=== PATIENT | male | born 1960 | race Caucasian/White ===

== ENCOUNTER 2021-03-11 05:51 | Day surgery (SDC) | payer OTHER, SELFPAY ==
--- NOTE | 2021-02-24 14:49 | HP.PCM_ITS ---
History and Physical History and Physical [facility] Patient Name: Dallas Fine : 1960 From: JOSE BROWN PA-C DATE OF SURGERY: 03/11/2021 SCHEDULED PROCEDURE: left knee arthroscopy with medial and lateral meniscectomy and chondroplasty HISTORY OF PRESENT ILLNESS: Preoperative history and physical exam was performed on February 23, 2021. This is a 60-year-old male who had an injury to the left knee on October 11, 2020. At that time he was going down steps when he hit his head landed on his left lower extremity twisting his knee. Since then he has had instability with the left knee. He had no prior pain or complications with the left knee before October 2020. Pain is located over the medial lateral aspect of the knee. He has increased pain going up and down stairs, walking, and sitting. He has tried nonsteroidal anti-inflammatory ibuprofen and Aleve with no relief in symptoms. Patient states he never had any symptoms from hitting his head after the injury. Patient continues throughout the day to get occasional catching sensation in the knee. His pain can reach as high as a 6/10. He does get pain in the anterior aspect of the knee. After failing conservative measures and discussing treatment options, patient does wish to proceed with a left knee arthroscopy with medial and lateral meniscectomy and chondroplasty. We are undergoing preoperative lab work and EKG. Patient denies any chest pain, shortness of breath, fevers chills, recent infections. He has medical history pertinent for type 2 diabetes mellitus, gout, and sleep apnea. REVIEW OF SYSTEMS: ROS: Const: Reports weight change, but denies change in appetite and fever. CV: Denies chest pain, heart murmur and irregular heartbeat. Resp: Denies cough, pneumonia, shortness of breath, tuberculosis and wheezing. GI: Denies constipation, diarrhea, heartburn, nausea, rectal itching, bloody stools and vomiting. : Denies incontinence. Musculo: Denies leg swelling, pain, trouble walking and weakness. Skin: Denies Raynaud's, history of shingles and tattoo. Neuro: Denies ambulatory dysfunction, dizziness, numbness/tingling and tremor. Psych: Denies anxiety, insomnia and stress. Scotty/Lymph: Denies anemia, bleeding/bruising tendency and past transfusion. Reviewed, no changes. PAST MEDICAL HISTORY: Advance Care Plan: No Advance Directives Effective Date: 12/24/2020 PMH: Medical Problems: Diabetes, Gout, Hypercholesterolemia, Sleep Apnea Covid- 19 - VACCINATED BOOSTER Accidents: None Surgical Hx: Tonsillectomy - (1970) Anesthesia Complications: None Assistive Devices: Cpap, Brace, Glasses Reviewed and updated. 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.Work Status: Currently Working.Hand Dominance: Right-handed. Personal Habits: Cigarette Use: Never Smoked Cigarettes.Smokeless Tobacco: Never Used Smokeless Tobacco.E-Cigarette Use: Never used.Alcohol: Occasionally.Drug Use: Denies Use.Enjoy Exercising: Never Exercises. Reviewed and updated. VITALS: Ht: 70.8 Wt: 296lb 6oz Wt k.436 BMI: 41.6 BP: 134/72 Pulse: 76 Resp: 16 T: 97.2 T: 36.2C Pain Level: 1 ALLERGIES: CT Contrast - Heart Issues Cholesterol Meds - Sore Legs MEDICATIONS: Energy 5-325 mg 1-2 by mouth every 6 hour as needed pain, Atorvastatin Calcium 40 mg 1 by mouth every day, Metformin HCL 1000 mg 1po bid, Glipizide 10 mg 1 by mouth twice a day, Allopurinol 300 mg 1po qday PRE-OP EXAM: General appearance:NORMAL Other: Eyes: Conjunctivae and lids: NORMAL Pupils: ERR Ears, Nose, Mouth, and Throat: NORMAL Other: Inspection of lips, teeth and gums: NORMAL Other: Neck: Examination of neck: no masses noted. Respiratory: Assessment of respiratory effort: NORMAL Other: Auscultation of lungs: clear to auscultation no wheezes, rhonchi or rales. Cardiovascular: Auscultation of heart: regular rate and rhythm, no murmurs, gallops or rubs. PHYSICAL EXAMINATION: Left knee is cool to touch without erythema or signs of infection. He does have effusion to the left knee. He has tenderness to palpation along the medial lateral joint line. He gets some crepitus with range of motion. Range of motion left knee: 0 extension to 115 flexion with pain. He has positive Jeffrey's examination, negative anterior/posterior drawer, negative varus/valgus stress test. He does walk with a slight limping gait. Sensation intact to light touch. IMAGING STUDIES: Previous x-rays of the left knee reveal varus alignment with medial joint space narrowing, subchondral sclerosis, osteophyte formation consistent with moderate stage III osteoarthritis. [place] view shows lateral joint space narrowing with osteophyte formation. MRI from [facility] [place] on December 31, 2020 revealed medial and lateral meniscus tear. There is also a high-grade cartilage loss in the medial compartment as well as full-thickness chondral malacia in the lateral compartment. There appears to be loose body in the posterior aspect of the PCL. MRI report states grade 3 chondromalacia medially, grade 2-3 chondral malacia in the patellofemoral compartment and grade 2 chondromalacia of the lateral compartment. IMPRESSION: 1. Left knee medial lateral meniscus tear 2. Left knee osteoarthritis 3. Type 2 diabetes mellitus 3. History of gout 4. Hypercholesterolemia 5. Sleep apnea PLAN: I did discuss and review with the patient all treatment options including surgical versus nonsurgical options. Patient does wish to proceed with the above-stated procedure. Potential risks, benefits, and complications of the procedure were discussed in detail including but not limited to , infection, nerve and blood vessel damage, persistent pain, numbness, tingling, paresthesias, blood clot, pulmonary embolism, and requirement for possible further surgery. The patient expressed full understanding and has no further questions for the doctor. Patient does agree to proceed with the above-stated procedure and has signed the surgery consent form. Patient is in agreement with treatment plan is aware that his underlying osteoarthritis with the knee can still be a source of pain postoperatively which may lead to future surgical intervention. Patient prior to this injury had no problems with his knee and we did discuss pain coming from the meniscus versus arthritis. We discussed the current risks associated with COVID 19. This does include the risk of exposure while in the hospital. Patient was reassured local hospitals have low infection rates and are taking all necessary precautions to avoid exposure to patients. In addition, we discussed strategies that can be used to help limit exposure including those that limit the patient's time in the hospital. Also using strategies to limit the patient's need for continued inpatient services after being discharged from the hospital. Patient was notified that we will need to comply with any screening or testing the hospital wishes to perform or that surgery may be delayed for any positive results. This dictation was created using voice recognition software. Phonetic and/or grammatical errors may exist. ___ I have re-examined the patient. There are no clinical changes since date of exam. ___ See progress notes for changes. ___ Dictated on admission Date: Time: Signature:
--- NOTE | 2021-03-09 09:26 | EKG12_ITS ---
Test Reason : PREOP Blood Pressure : / mmHG Vent. Rate : 075 BPM Atrial Rate : 075 BPM P-R Int : 150 ms QRS Dur : 086 ms QT Int : 388 ms P-R-T Axes : 030 -04 003 degrees QTc Int : 433 ms Normal sinus rhythm Normal ECG Confirmed by FATOU DUNCAN, MOISES ([id number]), legal editor SHANTE ARAMBULA ([id number]) on 03/09/2021 2:06:59 PM Referred By: Warner Cohen Confirmed By:MOISES LAINEZ MD
[2021-03-09 10:49] LABS: Hematocrit 43.5 % (40-54); Hemoglobin 14.2 g/dL (13.0-16.5); Mean Corp Hgb Conc 32.6 g/dL (32-36); Mean Corpuscular Hgb 28.7 pg (27.0-32.0); Mean Corpuscular Volume 87.9 fL (80-94); Mean Platelet Vol. 10.5 fl (6.2-12.0); Platelet Count 281 K/mm3 (150-450); RBC Distribution Width CV 14.4 % (11.6-14.6); RBC Distribution Width SD 46.2 fl (35.1-43.9); Red Blood Count 4.95 M/mm3 (4.6-6.2); White Blood Count 9.3 K/mm3 (4.4-11.0)
[2021-03-09 11:14] LABS: Hemoglobin A1c 7.3 % (3.8-5.6)
[2021-03-09 11:23] LABS: Anion Gap 7 (5-15); BUN 18 mg/dL (7-18); BUN/Creat Ratio 18.6 RATIO (10-20); Calcium,Total 9.3 mg/dL (8.5-10.1); Chloride 107 mmol/L (98-107); Creatinine, Serum 0.97 mg/dL (0.70-1.30); EST Glomerular Filtration Rate 85 mL/min (>60); Est Glom Filt Rate - Afr Amer 102 mL/min (>60); Glucose 201 mg/dL (74-106); Potassium 4.2 mmol/L (3.5-5.1); Sodium Level 140 mmol/L (136-145)
[2021-03-11] VITALS (7 sets, daily range): BP systolic 140–157; BP diastolic 80–100; PULSE 84–94; RESP 18; TEMP 36.4–36.6; O2SAT 94–100; BMI 41.5
[2021-03-11] MEDS: Lactated Ringers 1,000 ML 15 ML IV (06:15)
[2021-03-11 06:56] LABS: Bedside Glucose 150 mg/dL (70-110)
[2021-03-11] MEDS: Ketorolac 30 MG/ML Syringe IV (07:15)
[2021-03-11] MEDS: Epinephrine (1 mg/ml) 1 MG/ML VIAL (07:48)
--- NOTE | 2021-03-11 08:12 | PCM.OPRPT ---
Report of Operation Date of Procedure: 03/11/21 Pre-Operative Diagnosis: Left knee tricompartmental chondromalacia, medial meniscus tear, lateral meniscus tear Post-Operative Diagnosis: Left knee tricompartmental chondromalacia, medial meniscus tear, lateral meniscus tear Surgery/Procedure Performed:: Left knee arthroscopic 1. Tricompartmental chondroplasty 2. Partial medial and lateral meniscectomy Description of Surgical Findings:: Grade IV chondromalacia tricompartmental medial and lateral meniscus tears Surgeon: Warner Cohen radiologist: None Type of Anesthesia: General Anesthesiologist: Obdulio Muñoz Special Medications: 3 g Ancef Estimated Blood Loss (mL): 10 Fluids Replaced: 700 mL crystalloid Description of Procedure: On the date of the procedure, the patient's L lower extremity was marked in the preoperative area. Patient was brought back to the operating room where they were transferred to the bed. Anesthesia assumed control of the C-spine airway and administered anesthetic. All bony prominences were identified and well-padded and the L leg was placed in the arthroscopic leg grant. The contralateral leg was then draped over the bed and well-padded. There was padding underneath both sciatic nerves. The foot of the bed was then dropped and the L leg was prepped in a sterile fashion. The surgeon then scrubbed. Upon reentering the room, the operative leg was draped in a standard orthopedic fashion. A timeout was called, everyone agreed upon the side, the site, the procedure to be performed, patient's identity and antibiotics given. Incisions were marked out for the medial and lateral infrapatellar portals. Esmarch bandage was then used to exsanguinate the leg and tourniquet was placed at 250 mmHg. At this time, the lateral portal incision was made in a vertical fashion. The trocar was placed into the joint. The camera was then placed and the patellofemoral joint was visualized. The patella did appear to have grade 4 chondral changes. The trochlea appeared to have grade 4 chondral changes. We then directed our attention to the medial gutter where there was no foreign body. Then directed our attention to the medial joint compartment. There were grade 4 chondral changes on the medial distal femur, grade 3 chondral changes on the medial tibial plateau. The medial meniscus had large posterior horn complex tear. The medial portal was then placed under direct visualization using a spinal needle an 11 blade scalpel. Once this was done a probe was placed in the joint and the meniscus was probed finding large posterior horn complex tear as well as a central crevice with cartilage flaps on the distal femoral condyle. The biters and lisseth were then used sequentially to debriding get rid of any free edges that could be a source of pain and catching in the meniscus tear. Once we felt medial meniscus tear was adequately debrided, we again visualized the joint and noted the meniscus tear was adequately debrided. We also used a shaver to debride the chondral flaps exposing a much larger central defect with grade IV chondromalacia in this area. Attention was then turned towards the notch where the anterior cruciate ligament was intact. PCL was visualized and appeared intact. Attention was then directed towards the lateral compartment where the lateral distal femur had a central grade 4 lesion chondral changes, the lateral proximal tibia had grade 3 chondral changes. The lateral meniscus had large posterior horn and anterior horn tears. Biters and lisseth were used to sequentially breed the meniscus tear. Shaver was used to debride the chondral flaps around the central crevice exposing a much larger area of grade IV chondromalacia on the distal femoral condyle laterally. We then directed our attention to the lateral gutter, which was visualized and no free bodies were noted. At this point we directed our attention back to the patellofemoral compartment where the shaver was used to debride the chondral flaps associated with a grade IV chondromalacia on the patella as well as the trochlea. Once this was done the wound was copiously irrigated out with normal saline with epinephrine. The wound was closed with 4-0 nylon and 0.5% Marcaine and epinephrine were injected for local anesthetic. Xeroform was placed over the incision. Sterile dressing was placed. Compressive dressing was placed. Tourniquet was let down. For that there was then placed up. Patient was awakened by anesthesia patient was transferred to the PACU for recovery in stable condition. Postoperative plan: Patient will be made weight-bear as tolerated. Return to activities as tolerated. He will come to the office in 2 weeks for postoperative wound check and suture removal. If he is doing well that time he can follow-up as needed.
== END 2021-03-11 23:59 | disposition home or self-care (01) ==
LOC: SDC 05:52 → AC 05:52
PROVIDERS: Referring Provider Specialist; Visit Provider Specialist
PROC: (CPT 29870; principal; 2021-03-11 07:10)
DX: S83.282A Other tear of lateral meniscus, current injury, left knee, initial encounter (principal); E11.9 Type 2 diabetes mellitus without complications; M17.12 Unilateral primary osteoarthritis, left knee; Z79.84 Long term (current) use of oral hypoglycemic drugs; E78.00 Pure hypercholesterolemia, unspecified; M10.9 Gout, unspecified; M22.42 Chondromalacia patellae, left knee; G47.30 Sleep apnea, unspecified; Z79.899 Other long term (current) drug therapy; X50.1XXA Overexertion from prolonged static or awkward postures, initial encounter; Y93.9 Activity, unspecified; Y92.9 Unspecified place or not applicable; I10 Essential (primary) hypertension; S83.242A Other tear of medial meniscus, current injury, left knee, initial encounter
CPT/HCPCS: 29880; 01400; 36415; 80048; 82962; 83036; 85027; 93005; J7120; J2405

== ENCOUNTER → 2022-03-25 | Outpatient (CLI) | payer OTHER, SELFPAY ==
--- NOTE | 2022-03-25 15:36 | MRI_ITS ---
STUDY: MRI LUMBAR SPINE WITHOUT CONTRAST REASON FOR EXAM: Male, 61 years old. SPINAL STENOSIS TECHNIQUE: Standardized fat and water weighted pulse sequences were obtained in the sagittal and axial planes. COMPARISON: None FINDINGS: T12-L1: Normal endplates. Normal disc height, desiccation and normal morphology Normal bilateral facet joints. Normal central canal and bilateral lateral recesses. Normal bilateral intervertebral neural foramina. Normal lumbar lordosis. There is no substantial scoliosis. Normal conus medullaris that terminates at T12-L1 L1-2: Normal endplates. Normal disc height, desiccation and minimal annular bulge.. Normal bilateral facet joints. Normal central canal and bilateral lateral recesses. Normal bilateral intervertebral neural foramina. L2-3: Normal endplates. Normal disc height, desiccation and normal morphology.. Minor facet arthropathy and thickening of ligamenta flava. Normal central canal and bilateral lateral recesses. Mild bilateral neural foraminal encroachment. L3-4: Normal endplates. Normal disc height, desiccation and minimal bulging disc osteophyte complex.. Facet arthropathy and thickening of ligamenta flava. Normal central canal. Moderate bilateral recess and neural foraminal stenosis exaggerated by shortened pedicles L4-5: Normal endplates. Normal disc height, desiccation and normal morphology. Facet arthropathy and thickening of ligamenta flava.. Normal central canal. Mild to moderate bilateral lateral recess and neural foraminal stenosis exaggerated by shortened pedicles L5-S1: Normal endplates. Normal disc height, desiccation and minor bulging disc osteophyte complex with tiny central annular tear and disc protrusion.. Facet arthropathy and thickening of ligamenta flava.. Minor narrowing of the central canal. Moderate bilateral lateral recess stenosis and severe neural foraminal stenosis exaggerated by shortened pedicles Normal visualized sacral ala. Normal visualized paraspinous soft tissue structures. MRI/Spine Lumbar (Routine) IMPRESSION: No evidence for acute fracture or other significant bony pathology.. Multilevel spinal stenosis secondary to disc disease and facet arthropathy exaggerated by shortened pedicles most severe at L5-S1. Findings as above Electronically Signed: Rian Toribio MD at 16:56 EST ,
== END | disposition home or self-care (01) ==
LOC: MRI 15:28
PROVIDERS: PCP Nurse Practitioner Primary Care; Visit Provider Orthopaedic Surgery
DX: M48.061 Spinal stenosis, lumbar region without neurogenic claudication (principal); M46.96 Unspecified inflammatory spondylopathy, lumbar region; M47.26 Other spondylosis with radiculopathy, lumbar region
CPT/HCPCS: 72148

== ENCOUNTER → 2023-07-18 | Outpatient (CLI) | payer BC, SELFPAY ==
--- NOTE | 2023-07-18 16:09 | RAD_ITS ---
INDICATION: PAIN EXAMINATION/TECHNIQUE: X-RAY - XR Hip Unilateral with Pelvis when performed; 2-3 Views: AP pelvis with AP and frog-leg right hip COMPARISON: None FINDINGS: PELVIC BONES: No displaced fracture, destructive or sclerotic lesions. Note that overlapping bowel shadows may however obscure fine detail. Sacroiliac joints are unremarkable. No widening of the pubic symphysis. HIPS: Normal bilateral hip alignment with moderate joint space narrowing and mild osteophyte formation. No avascular necrosis. No visible femoral fracture. SOFT TISSUES: No soft tissue swelling or gas. RAD/HIP, UNI W/ Pelvis 2-3 Views IMPRESSION: No evidence of displaced pelvic or hip fracture. Moderate bilateral hip osteoarthritis. Electronically Signed: Kiko Contreras MD at 3:24 EDT ,
== END | disposition home or self-care (01) ==
LOC: MTRAD 16:07
PROVIDERS: PCP Nurse Practitioner Primary Care; Referring Provider Clinical Nurse Specialist Adult Health; Visit Provider Clinical Nurse Specialist Adult Health
DX: M16.0 Bilateral primary osteoarthritis of hip (principal)
CPT/HCPCS: 73502

== ENCOUNTER 2023-08-18 10:51 | Emergency (ER) | payer BC, SELFPAY ==
[2023-08-18 10:52] VITALS: BP 153/80; PULSE 75; RESP 14; TEMP 36.1; O2SAT 96
--- NOTE | 2023-08-18 11:20 | EX.ED.DYSGE1 ---
HPI History of Present Illness Chief Complaint: Flank Pain Informant: patient Onset/Context/Timing Onset: Today Narrative Narrative: Patient present secondary to right flank pain. He has a history of back problems and has had prior injections. The past couple days he noted some increased pain in his back but thought was musculoskeletal. Today pain was more severe and is now wrapping around into the groin line. He denies urinary symptoms. Pain does not radiate down his leg. No history of kidney stones. [facility] Medical History Wears glasses Diabetes Arthritis Gout High cholesterol Migraine headache Loss of consciousness Dietary restriction CPAP (continuous positive airway pressure) dependence Sleep apnea History of pain when walking History of stress test Hypertension Home Medications ?Medication ?Instructions ?Recorded ?Last Taken ?Type allopurinol 300 mg tablet 300 mg PO DAILY 03/04/21 Unknown History frughal-cmhrhzpmclmib-lhgrysba 250 2 tab PO Q6H PRN MIGRAINES 03/04/21 Unknown History mg-250 mg-65 mg tablet (Excedrin Migraine) atorvastatin 40 mg tablet 40 mg PO QHS 03/04/21 Unknown History glipizide 10 mg tablet, extended 20 mg PO DAILY 03/04/21 Unknown History release 24 hr metformin 500 mg tablet,extended 1,000 mg PO BID 03/04/21 Unknown History release 24 hr hydrocodone-acetaminophen 5-325mg 1 tab PO Q6H PRN PRN Pain 3 days 08/18/23 Unknown Rx 5mg-325mg #10 TABLETS ibuprofen 600 mg tablet 600 mg PO Q8H PRN PRN pain #10 08/18/23 Unknown Rx TABLETS ondansetron 4 mg disintegrating 4 mg PO Q8H PRN PRN Nausea #10 tabs 08/18/23 Unknown Rx tablet tamsulosin 0.4 mg capsule (Flomax) 0.4 mg PO DAILY #14 caps 08/18/23 Unknown Rx Allergy/AdvReac Type Severity Reaction Status Date / Time Iodinated Contrast Media (CT) Allergy Other Verified 08/18/23 11:36 Aszghhj-ZJB-UuH Reductase Allergy NEEDS Verified 08/18/23 11:36 Inhibitor FOLLOW-UP Surgical History Hx of tonsillectomy Social History Smoking Status: Never smoker ROS ROS ED Constitutional Constitutional ED: Denies chills or fever(s) ENT ENT ED: Denies rhinorrhea or sore throat Cardiovascular Cardiovascular: Denies chest pain or palpitations Respiratory/Chest Respiratory/Chest: Denies cough or dyspnea Gastrointestinal Gastrointestinal: Reports abdominal pain; Denies nausea or vomiting Genitourinary Genitourinary ED: Denies dysuria or hematuria Musculoskeletal Musculoskeletal: Reports back pain; Denies extremity pain Integumentary Denies Abrasions or rash Neurologic Neurologic: Denies headache(s) or weakness Psychiatric Psychiatric: Denies anxiety or depression Allergic/Immunologic Allergic/Immunologic ED: Denies lip swelling or urticaria EXAM Physical Exam Const Vital Signs: 08/18/23 10:52 Temperature 97 F L Temperature Source Temporal Pulse Rate 75 Respiratory Rate 14 Blood Pressure 153/80 H Blood Pressure Mean 104 Pulse Ox 96 Oxygen Delivery Method Room Air Positive well nourished and well developed General Appearance ED: well developed HEENT Reports moist mucous membranes Eyes EOMs intact bilaterally Chest Wall inspection of chest normal and palpation of chest normal Resp normal respiratory effort and clear to auscultation bilaterally Cardio regular rate and regular rhythm GI non-tender Palpation: soft Back/Spine General Back: CVA tenderness right Extremity normal to inspection Neuro oriented x3 and no sensory deficits noted Motor Exam: strength 5/5 throughout Psych mental status grossly normal Skin no rashes or lesions noted MDM MDM MDM Narrative Medical decision making narrative: IV line established. Patient given morphine, Toradol, Zofran, IV fluids. Labwork obtained to evaluate for leukocytosis, anemia, and electrolyte derangement. Urinalysis obtained to evaluate for infection/hematuria. CT scan of the flank obtained to evaluate for potential renal stone. History & Record Review Discussion w/independent historian: Patient Lab Data Attestation: I reviewed the patient's lab results. Labs: Laboratory Results - last 24 hr 08/18/23 08/18/23 11:40 12:50 WBC 10.5 RBC 4.74 Hgb 13.4 Hct 42.1 MCV 88.8 MCH 28.3 MCHC 31.8 L RDW Std Deviation 49.0 H RDW Coeff of Maryjo 15.1 H Plt Count 269 MPV 10.3 Immature Gran % (Auto) 2.700 H Neut % (Auto) 80.0 H Lymph % (Auto) 8.8 L Ramsey % (Auto) 6.7 Eos % (Auto) 0.8 Baso % (Auto) 1.0 Absolute Neuts (auto) 8.4 H Absolute Lymphs (auto) 0.92 Nucleated RBC % 0 Sodium 139 Potassium 4.3 Chloride 106 Carbon Dioxide 26.0 Anion Gap 7 BUN 17 Creatinine 1.05 Est GFR (MDRD) Af Amer 92 Est GFR (MDRD) Non-Af 76 BUN/Creatinine Ratio 16.2 Glucose 259 H Calcium 9.2 Urine Color Yellow Urine Clarity Clear Urine pH 5.0 Ur Specific [place] 1.015 Urine Protein 30 H Urine Glucose (UA) 250 H Urine Ketones Negative Urine Occult Blood 250 H Urine Nitrite Negative Urine Bilirubin Negative Urine Urobilinogen Normal Ur Leukocyte Esterase Negative Urine RBC 10-25 SEEN Urine WBC 0-5 SEEN Ur Squamous Epith Cells 0-5 SEEN Urine Bacteria 0 SEEN Urine Mucus 0 SEEN Radiography Diagnostic Testing: Clinical Impression(s) from Imaging Studies Abdomen/Pelvis CT 08/18/23 11:48 IMPRESSION: 2 mm cavernous and distal portion of the right ureter just proximal to the right ureterovesical junction causing a mild degree of right hydronephrosis and right hydroureter. Focal calcification in the pancreas. I cannot rule out calculus in the distal portion of the common bile duct although there is no evidence of a biliary dilatation. Electronically Signed: Best Rocha MD at 12:32 EDT , Treatment and Re-Evaluation :: CBC was normal white count at 10.5 with 80% neutrophils. Hemoglobin is 13.4. Chemistry studies remarkable only for glucose of 259. Renal function is normal. Urinalysis does reveal 10-25 RBCs but no sign of infection. CT flank reveals a 2 mm calculus at the distal portion of the right ureter just proximal to the right UVJ. Radiology does note that they cannot rule out a calculus in the distal portion of the common bile duct, but the patient has no upper abdominal pain. On repeat evaluation patient resting comfortably and pain is controlled. Test results are discussed with him. I will send prescriptions to the pharmacy for him and refer him to Dr. Garnett as needed for follow-up. Discharge Plan Triage Chief Complaint: Flank Pain ED Provider: Isa Herrera Dx/Rx/DC Orders Clinical Impression: Ureterolithiasis Instructions: ED Kidney Stone with Pain Prescriptions: New hydrocodone-acetaminophen 5-325 mg tablet 1 tab PO Q6H PRN PRN (Reason: Pain) 3 Days Qty: 10 0RF ibuprofen 600 mg tablet 600 mg PO Q8H PRN PRN (Reason: pain) Qty: 10 0RF ondansetron 4 mg tablet,disintegrating 4 mg PO Q8H PRN PRN (Reason: Nausea) Qty: 10 0RF tamsulosin [Flomax] 0.4 mg capsule 0.4 mg PO DAILY Qty: 14 0RF No Action atorvastatin 40 mg tablet 40 mg PO QHS glipizide 10 mg tablet extended release 24hr 20 mg PO DAILY allopurinol 300 mg tablet 300 mg PO DAILY metformin 500 mg tablet extended release 24 hr 1,000 mg PO BID Excedrin Migraine 250-250-65 mg Tablet 2 tab PO Q6H PRN (Reason: MIGRAINES) Primary Care Provider: Maryan Valadez NP Referrals: Mahendra Garnett MD [Med Staff - Active Staff] - As Needed Maryan Valadez NP, SPECIAL EDUCATION COORDINATOR-C [Primary Care Provider] - Print Language: Turkmen Disposition Disposition: Home, Self Care
[2023-08-18] MEDS: Ketorolac 15 MG/ML Vial IV (11:32)
[2023-08-18] MEDS: Morphine 4 MG/ML Syringe IV (11:32)
[2023-08-18] MEDS: Ondansetron 4 MG/2 ML Vial IV (11:32)
[2023-08-18] MEDS: 0.9% Normal Saline (1000mL) 1,000 ML 150 ML IV (11:32)
[2023-08-18 11:47] LABS: Absolute Lymphocyte Count 0.92 X10^3/uL (0.83-4.51); Absolute Neutrophil Count 8.4 X10^3/uL (2.0-7.7); Basophil# 0.11 X10^3/uL; Eosinophil# 0.08 X10^3/uL; Eosinophils% 0.8 % (0-5); Hematocrit 42.1 % (40-54); Hemoglobin 13.4 g/dL (13.0-16.5); Lymphocyte # 0.92 X10^3/ul (0.83-4.51); Lymphocyte % 8.8 % (19-41); Mean Corp Hgb Conc 31.8 g/dL (32-36); Mean Corpuscular Hgb 28.3 pg (27.0-32.0); Mean Corpuscular Volume 88.8 fL (80-94); Mean Platelet Vol. 10.3 fl (6.2-12.0); Monocyte% 6.7 % (0-10); NRBC Flagged by Analyzer 0 % (0-5); Neutrophil # 8.39 X10^3/uL (2.7-7.7); Platelet Count 269 K/mm3 (150-450); RBC Distribution Width CV 15.1 % (11.6-14.6); Red Blood Count 4.74 M/mm3 (4.6-6.2); White Blood Count 10.5 K/mm3 (4.4-11.0)
--- NOTE | 2023-08-18 11:48 | CT_ITS ---
STUDY: CT ABDOMEN AND PELVIS WITHOUT CONTRAST REASON FOR EXAM: Male, 63 years old. Right flank pain RADIATION DOSAGE (If Supplied By Facility): CTDIvol = ( 23.69 ) mGy, DLP = ( 1420.86 ) mGycm TECHNIQUE: Transaxial images were obtained from the dome of the diaphragm to the symphysis pubis without oral contrast, and without intravenous contrast. Sagittal and coronal images were reconstructed. Individualized dose optimization techniques were used for this CT. COMPARISON: None. FINDINGS: Minimal degree of increased markings at the lung bases suggestive of minimal linear atelectasis and/or scarring The visualized portions of the heart are within normal limits. Normal liver. Normal gallbladder and extrahepatic biliary system. Normal spleen. 3.1 mm focal calcification is seen in the head of the pancreas. Cannot rule out choledocholithiasis. Normal bilateral adrenal glands. Mild degree of right hydronephrosis and right hydroureter with mild right perinephric and periureteric stranding. There is evidence of a 2 mm calculus in the distal portion of the right ureter just proximal to the right ureterovesical junction. Normal left kidney. There is a small hiatal hernia. Normal small intestine. There are multiple colonic diverticula consistent with diverticulosis. The appendix is visualized and appears normal. Normal abdominal aorta. Normal inferior vena cava. Normal retroperitoneum. Normal urinary bladder. Normal abdominal wall. There are diffuse degenerative changes of the visualized lumbar spine. Loss of the normal lumbar lordosis. CT/Abdomen/Pelvis without Cont IMPRESSION: 2 mm cavernous and distal portion of the right ureter just proximal to the right ureterovesical junction causing a mild degree of right hydronephrosis and right hydroureter. Focal calcification in the pancreas. I cannot rule out calculus in the distal portion of the common bile duct although there is no evidence of a biliary dilatation. Electronically Signed: Best Rocha MD at 12:32 EDT ,
[2023-08-18 12:01] LABS: Anion Gap 7 (5-15); BUN 17 mg/dL (7-18); BUN/Creat Ratio 16.2 RATIO (10-20); Calcium,Total 9.2 mg/dL (8.5-10.1); Chloride 106 mmol/L (98-107); Creatinine, Serum 1.05 mg/dL (0.70-1.30); EST Glomerular Filtration Rate 76 mL/min (>60); Est Glom Filt Rate - Afr Amer 92 mL/min (>60); Glucose 259 mg/dL (74-106); Potassium 4.3 mmol/L (3.5-5.1); Sodium Level 139 mmol/L (136-145)
[2023-08-18 12:51] VITALS: BP 128/64; PULSE 72; RESP 16; TEMP 36.8; O2SAT 99
[2023-08-18 12:56] LABS: Bacteria 0 SEEN /hpf (None Seen); Mucous, Urine 0 SEEN /hpf (<or=2+)
[2023-08-18 13:00] LABS: Color, Urine Yellow (Yellow); Glucose, Dipstick 250 mg/dl (Normal); Ketone-Dipstick Negative (Negative); Leukocyte Esterase-Dipstick Negative /ul (Negative); Nitrite-Dipstick Negative (Negative); Occult Blood-Urine 250 /ul (Negative); Protein-Dipstick 30 mg/dl (Negative); Specific Gravity, Urine 1.015 (1.002-1.030); Urine Bilirubin Dipstick Negative (Negative); Urine Clarity Clear (Clear); Urine Urobilinogen Normal (Normal)
[2023-08-18 13:09] LABS: Red Blood Cells-Urine 10-25 SEEN /hpf (0-5); Squamous Epithelial Cells - UA 0-5 SEEN /hpf (0-5); White Blood Cells 0-5 SEEN /hpf (0-5)
[2023-08-18 13:16] VITALS: BP 137/88; PULSE 76; RESP 15; TEMP 37.1; O2SAT 99
== END 2023-08-18 13:19 | disposition home or self-care (01) ==
PROVIDERS: Emergency Provider Emergency Medicine; PCP Nurse Practitioner Primary Care; Visit Provider Emergency Medicine
DX: N20.1 Calculus of ureter (principal); E11.9 Type 2 diabetes mellitus without complications; M10.9 Gout, unspecified; E78.00 Pure hypercholesterolemia, unspecified; I10 Essential (primary) hypertension; Z79.82 Long term (current) use of aspirin; Z79.84 Long term (current) use of oral hypoglycemic drugs; Z79.899 Other long term (current) drug therapy
CPT/HCPCS: 74176; 80048; 81001; 85025; 96361; 96374; 96375; 99282; J7030; A4216; J2405

== ENCOUNTER 2024-11-06 16:00 | Outpatient (RCR) | payer BC, SELFPAY ==
--- NOTE | 2024-10-05 16:23 | HP.PTEVAL ---
Patient's Visit Information Visit Information Visit Information: TC OREILLY is a 64 year old M referred to Physical Therapy by Dr. Ron Lees MD with a diagnosis of Lumbar stenosis with neurogenic claudication. Date of Evaluation: 10/05/24 Physical Therapist: Francisco Santana DPT Visit Plan Frequency: 1-2x /Week Duration: 4 Weeks Plan: 1) neutral spine core strengthening 2) HS stretching, lumbar ROM as tolerated PRogress to HEP If not improving consider MRI to determine pathology. Subjective Subjective: Pt. us here today for his initial evaluation with diagnosis of lumbar stenosis with neurogenic claudication. Pt. reports hurting his back ~3 years ago. He reports increased pain with walking and with sleeping. He gets about 3-4 hours of sleeping before having pain in his back and cramping in his legs. Pt. has relief with flexion exercises. Pt. uses a SCP for ambulation. Pt. reports being able to ambulate ~1 block. Pt. reports no relief with pain meds. Pt. reports constant N/T in L foot (mostly the big toe). 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 Pt. does a lot driving to get to his cases and sitting. Pain Lumbar spine: Pain Intensity (Out of 10): 4 Pain Intensity Range: 2 and 7 RLE: Pain Intensity (Out of 10): 5 Pain Intensity Range: 1 and 8 Objective Objective: POSTURE: Pt. has a general flexed posture with L trunk lean, PALPATION: Pt. has no pain with palpation of BLEs. NEURO: Pt. has normal sensation in BLEs. Pt. has 2+ DTR of achilles and patellar. MMT: RLE: knee: ext 41.9#, flex 28.1#, hip flex 25.0# LLE: knee: ext 39.9#, flex 28.9#; hip: flex 27.0# ROM: LUMBAR SPINE: Flexion mod loss NW, ext max loss increase NW increase back and LE symptoms, SB min loss NE, rotation min/mod loss NE. Pt. has tightness in B HS MMT: Pt. has 5/5 B LE strength, poor core strength. GAIT: pt. ambulated with out AD, he has increased trunk lean to L side with gait, but not lateral shift noted. Pt. has marked flexed posture in stance. - SLR test, - slump test, Balance/Special Test Scores Oswestry Low Back Score: 28 Goals Goal 1:: LTG: Pt. to be I with HEP. Goal Time Frame: 4-6 Weeks Goal 2:: STG: Pt. to have increased lumbar and HS ROM by 25%. Goal Time Frame: 2-4 Weeks Goal 3:: LTG: Pt. to ambulate 1000' with SPC without increase in BLE or LB pain. Goal Time Frame: 4-6 Weeks Goal 4:: LTG: Pt. to have increased core strength to fair. Goal Time Frame: 4-6 Weeks Rehabilitation Potential Physical Therapy Diagnosis: Pt. has signs and symptoms consistent with lumbar stenosis with neurogenic claudication. Pt. has marked lumbar ROM hypomobility, difficulty with walking and increased pain. He would benefit from PT to address the above limitations progressing back to all work and recreational activities. Rehabilitation Potential: Good Anticipated Interventions Patient/Client Instruction: Educate patient on: Condition, Plan of Care, Risk Factors and Benefits of Fitness Program For the Purpose of:: To improve self management, To prevent re-injury, To improve ability to perform tasks related to life management and To improve tolerance to ADL's Therapeutic Exercise to Include: Strength training, Power training, Endurance training, Flexibilty training and Gait and locomotor training For the Purpose of:: To decrease pain, To increase ROM, To improve nutrient delivery to tissue, To increase oxygenation perfusion, To improve health of tissue, To decrease soft tissue restriction and To increase flexibility/ROM Text: Thank you for the opportunity to evaluate your patient. For Medicare and Medicare HMO plans, please review the plan of care and approve it. It will need to be FAXED BACK to us at [phone] for Medicare purposes. For Medicare only, by signing this I certify the plan of care. Please let me know if there are questions or concerns regarding this plan of care. Physician Signature: Date:
--- NOTE | 2024-11-06 16:49 | HP.PTDCSUM_ITS ---
Discharge Summary D/C summary: It has been my pleasure to treat TC OREILLY referred by Dr. Ron Lees MD, with the diagnosis of Lumbar stenosis with neurogenic claudication for a total of 5 visit(s). Discharge Date: 11/06/24 Please see the following information for a summary of their discharge status. Subjective Subjective: Pt. reports overall not much change in his pain. Pt. reports being 10% better overall. I can move a little bit better, but the pain is the same. Pain Lumbar spine: Pain Intensity (Out of 10): 4 RLE: Pain Intensity (Out of 10): 4 Overall Improvement % Improvement: 10 Objective Objective/Function: ROM: LUMBAR SPINE: flexion mod loss NE, ext mod/max loss increase, SB min loss NE, rotation min loss bilat NE. PT. has imrpoved HS length 70deg bilaterally MMT: Pt. has 5/5 strength throughout BLEs, except 4/5 B hip flexion and a bduction./ GAIT: pt. ambulates with SPC, but has increased lumbar spine and LE pain after 150', with moderate amount of pain after 300' requesting to sit down. Pt. has not had much change in his symptoms and I would recommend DC back to physician at this point in time. Goals Goal 1:: LTG: Pt. to be I with HEP. Goal Progress: Progressing Goal 2:: STG: Pt. to have increased lumbar and HS ROM by 25%. Goal 3:: LTG: Pt. to ambulate 1000' with SPC without increase in BLE or LB pain. Goal Progress: Not Progressing Goal 4:: LTG: Pt. to have increased core strength to fair. Goal Progress: Progressing Plan Plan: Pt. to be DC from PT at this point in time. He has not had any improvement. D/C Information d/c sentence: If there are questions or concerns regarding this patient's physical therapy, please feel free to call me at [phone]. Thank you for the referral of this patient. Sincerely, Francisco Hoover Sipos, DPT Balance/Gait/Functional tests Balance/Special Test Scores Oswestry Low Back Score: 34 Improvement % Improvement: 10
== END 2024-11-06 19:00 | disposition home or self-care (01) ==
LOC: PT 16:00
PROVIDERS: PCP Nurse Practitioner Primary Care; Referring Provider Orthopaedic Surgery Orthopaedic Surgery of the Spine; Visit Provider Orthopaedic Surgery Orthopaedic Surgery of the Spine
DX: M48.062 Spinal stenosis, lumbar region with neurogenic claudication
CPT/HCPCS: 97110; 97161; 97530

== ENCOUNTER → 2024-12-20 | Outpatient (CLI) | payer BC, SELFPAY ==
--- NOTE | 2024-12-20 15:31 | MRI_ITS ---
PROCEDURE: SPINE LUMBAR (ROUTINE) 12/20/2024 REASON FOR EXAM: LUMBAR STENOSIS TECHNIQUE: Procedure Code: MRISPL Modality: MR Procedure: SPINE LUMBAR (ROUTINE) COMPARISON: MRI 03/25/2022 FINDINGS: For the purposes of this dictation, the lowest well-formed intervertebral disc space is assumed to be the L5-S1 level, and there are presumed to be 5 lumbar-type vertebral bodies. The lumbar vertebral bodies are normally aligned. The vertebral body heights and disc spaces are preserved. Redemonstrated L5 vertebral body hemangioma measuring 1.7 x 1.7 X 1.6 cm. The signal intensity of the vertebral body bone marrow is normal. No abnormal signal intensity is seen within the imaged portions of the cord. Conus medullaris ends at a normal level. The visualized rootlets of the cauda equina appear within normal limits. No epidural mass lesions are seen. L1-2: Mild disc desiccation. Mild bilateral facet joint/ligamentum flavum hypertrophy results in mild bilateral neural foraminal narrowing. No significant spinal canal stenosis. L2-3: Mild disc desiccation. Mild bilateral facet joint/ligamentum flavum hypertrophy results in mild bilateral neural foraminal narrowing. No significant spinal canal stenosis. L3-4: Mild disc desiccation. Moderate bilateral facet joint/ligamentum flavum hypertrophy results in moderate bilateral neural foraminal stenosis similar to prior. Mild spinal canal narrowing measuring 9.4 mm AP. L4-5: Mild disc desiccation. Moderate bilateral facet joint/ligamentum flavum hypertrophy results in moderate to severe bilateral neural foraminal stenosis similar to prior. No significant spinal canal stenosis. L5-S1: Moderate disc desiccation and loss of disc height. Extensive bilateral facet joint/ligamentum flavum hypertrophy results in severe bilateral neural foraminal stenosis. No significant spinal canal stenosis. Sacrum: Visualized portions unremarkable. MRI/Spine Lumbar (Routine) IMPRESSION: Multilevel degenerative spondylosis resulting in neural foraminal and spinal ca nal stenosis as described at each level above. Findings most pronounced at L4-L5 and L5-S1. Stable L5 vertebral body hemangio ma. Reading Location: [facility]
== END | disposition home or self-care (01) ==
LOC: MRI 15:27
PROVIDERS: PCP Nurse Practitioner Primary Care; Referring Provider Orthopaedic Surgery Orthopaedic Surgery of the Spine; Visit Provider Orthopaedic Surgery Orthopaedic Surgery of the Spine
DX: M48.061 Spinal stenosis, lumbar region without neurogenic claudication (principal)
CPT/HCPCS: 72148